=== PATIENT | female | born 1945 | race African-American/Black ===

== ENCOUNTER 2020-08-16 23:51 | Emergency (ER) | payer MEDICARE, MEDICAID ==
[~2020-08-16] VITALS: Ht 165.1 cm; Wt 54.4 kg
[2020-08-16] MEDS ORDERED: DEXTROSE (50%) 50ML SYRG IV ONE (23:57)
[2020-08-16] MEDS ORDERED: SODIUM BICARBONATE 8.4% INJ 50ML SYRINGE IV ONE (23:57)
[2020-08-16] MEDS ORDERED: EPINEPHrine HCL 1 MG/10 ML SYRG IV ONE (23:57)
[2020-08-17 02:00] VITALS: BP 79/38
[2020-08-17] MEDS ORDERED: DEXTROSE 50% SYRINGE 50 ML IV ONE (02:03)
== END 2020-08-17 02:07 | disposition expired ==
LOC: EDBD 23:51 → ER 23:56
DX: I46.9 Cardiac arrest, cause unspecified (principal)
CPT/HCPCS: 31500; 36600; 36680; 71045; 82805; 92950; 99291; J0171; J7042